=== PATIENT | male | born 1990 | race Caucasian/White ===

== ENCOUNTER 2017-07-26 20:23 | Emergency (ER) | payer OTHER ==
[2017-07-26] MEDS ORDERED: Bacitracin Zinc 1 Packet ONE (20:46)
== END 2017-07-26 21:05 | disposition home or self-care (01) ==
LOC: SCSER 20:23
DX: S80.212A Abrasion, left knee, initial encounter (principal); S80.211A Abrasion, right knee, initial encounter; W18.30XA Fall on same level, unspecified, initial encounter
CPT/HCPCS: 99283